=== PATIENT | male | born 1950 | race Caucasian/White ===

== ENCOUNTER 2020-11-20 12:04 | Inpatient (IN) ==
[2020-11-20 12:36] LABS: Basophils # 0.1 K/mcL (0.0-0.2); Basophils % 0.5 %; Eosinophils % 0.1 %; Hematocrit 46.1 % (37.5-50.1); Immature Granulocytes % 3.7 % (0-4); Lymphocytes # 1.5 K/mcL (0.6-4.6); Lymphocytes % 8.1 %; Mean Corpuscular HGB Conc 32.5 g/dL (31.6-35.5); Mean Corpuscular Hemoglobin 29.8 pg (28.0-33.3); Mean Corpuscular Volume 91.5 fL (83.0-100.0); Monocytes % 5.4 %; Neutrophils # 15.5 K/mcL (1.6-8.9); Platelet Count 167 K/mcL (140-400); Red Blood Count 5.04 M/mcL (4.19-5.50); Red Cell Distribution Width 16.5 % (11.5-14.5); Segmented Neutrophils % 82.2 %; White Blood Count 18.8 K/mcL (4.3-11.1)
[2020-11-20 12:52] LABS: BUN/Creatinine Ratio 23 (6-26); Blood Urea Nitrogen 41 mg/dL (8-23); Calcium 9.3 mg/dL (8.6-10.3); Carbon Dioxide 24 mEq/L (23-29); Chloride 102 mEq/L (98-107); Glucose 136 mg/dL (70-105); Osmolality,Calculated 298 (280-300); Potassium 4.1 mEq/L (3.5-5.1); Sodium 138 mEq/L (136-145); eGFR For African Americans 46 (> 60); eGFR For Non-African Americans 38 (> 60)
[2020-11-20] MEDS ORDERED: Ipratropium/Albuterol Neb 3 ML IH ONE (12:52)
[2020-11-20 12:53] LABS: Troponin I < 0.03 ng/mL (< 0.04)
[2020-11-20] MEDS ORDERED: cefTRIAXone 1,000 MG in Water for inj. (sterile) 10 ML IVP ONE (14:16)
[2020-11-20] MEDS ORDERED: Azithromycin 500 MG in D5% in Water 250 ML IVPB ONE (14:16)
[2020-11-20] MEDS ORDERED: 0.9 % Sodium Chloride 500 ML IVC ONE (14:18)
[2020-11-20] MEDS ORDERED: Naloxone 0.4 MG/ML INJ IVP PRN (16:37)
[2020-11-20] MEDS ORDERED: Furosemide 40 MG/4 ML VIAL IVP ONE (16:58)
[2020-11-20] MEDS ORDERED: Albumin 25% 25gram/100mL 25 GM/100 ML IV.SOLN IVPB ONE (17:06)
[2020-11-20] MEDS ORDERED: Perflutren Lipid Microsphere 1.3 ML in 0.9 % Sodium Chloride 8.7 ML IVP PRN (17:54)
[2020-11-20] MEDS: *HR* Heparin 5,000 UNIT/ML VIAL SQ SCH (23:17)
[2020-11-21] MEDS ORDERED: Acetaminophen 325 MG TABLET PO PRN (00:57)
[2020-11-21 01:55] LABS: Basophils # 0.1 K/mcL (0.0-0.2); Basophils % 0.4 %; Eosinophils # 0.1 K/mcL (0.0-0.6); Eosinophils % 0.5 %; Hematocrit 41.5 % (37.5-50.1); Hemoglobin 13.8 g/dL (12.9-16.9); Immature Granulocytes % 2.5 % (0-4); Lymphocytes # 3.4 K/mcL (0.6-4.6); Lymphocytes % 20.3 %; Mean Corpuscular HGB Conc 33.3 g/dL (31.6-35.5); Mean Corpuscular Hemoglobin 30.3 pg (28.0-33.3); Mean Platelet Volume 10.8 fL (9.4-12.4); Monocytes # 1.1 K/mcL (0.0-1.3); Monocytes % 6.7 %; Neutrophils # 11.6 K/mcL (1.6-8.9); Platelet Count 140 K/mcL (140-400); Red Blood Count 4.56 M/mcL (4.19-5.50); Red Cell Distribution Width 16.6 % (11.5-14.5); Segmented Neutrophils % 69.6 %; White Blood Count 16.6 K/mcL (4.3-11.1)
[2020-11-21 02:19] LABS: Albumin 3.7 g/dL (3.5-5.7); Albumin/Globulin Ratio 1.8 (1.1-2.2); Bilirubin,Total 0.8 mg/dL (0.3-1.0); Calcium 8.5 mg/dL (8.6-10.3); Globulin 2.1 g/dL (2.4-3.5); Potassium 3.9 mEq/L (3.5-5.1); Total Protein 5.8 g/dL (6.4-8.9)
[2020-11-21] MEDS: *HR* Heparin 5,000 UNIT/ML VIAL SQ SCH ×3 (05:35→21:10)
[2020-11-21] MEDS ORDERED: Nicotine 2 MG GUM BC PRN (08:59)
[2020-11-21] MEDS: Furosemide 40 MG/4 ML VIAL IVP SCH (11:05)
[2020-11-21] MEDS: Nicotine 21 MG PATCH.TD24 TD SCH (11:05)
[2020-11-21 11:35] LABS: Protein/Creatinine Ratio,Urine 0.14 mg/mg (0.00-0.20)
[2020-11-21 15:22] LABS: Bilirubin,Urine Negative (Negative); Blood,Urine Negative (Negative); Clarity,Urine Clear (Clear); Color,Urine Colorless (Yellow); Glucose,Urine (UA) Normal (Normal); Ketones,Urine Negative (Negative); Leukocyte Esterase,Urine Negative (Negative); Nitrite,Urine Negative (Negative); Protein,Urine Negative (Neg-Trace); Specific Gravity,Urine 1.009 (1.010-1.025); Urobilinogen,Urine Normal (Normal)
[2020-11-21] MEDS: carvediloL 25 MG TABLET PO SCH (16:10)
[2020-11-21] MEDS: Albuterol 2.5 MG/3 ML NEBULIZER IH PRN (16:42)
[2020-11-21] MEDS: Budesonide/Formoterol 160/4.5 1 PUFF INH IH SCH (19:55)
[2020-11-21] MEDS: Ranolazine 500 MG TAB.ER.12H PO SCH (21:10)
[2020-11-22 02:24] LABS: Basophils % 0.2 %; Eosinophils # 0.2 K/mcL (0.0-0.6); Eosinophils % 1.2 %; Hematocrit 42.4 % (37.5-50.1); Hemoglobin 13.9 g/dL (12.9-16.9); Lymphocytes # 2.9 K/mcL (0.6-4.6); Lymphocytes % 23.9 %; Mean Corpuscular HGB Conc 32.8 g/dL (31.6-35.5); Mean Corpuscular Volume 91.4 fL (83.0-100.0); Mean Platelet Volume 10.5 fL (9.4-12.4); Monocytes # 0.8 K/mcL (0.0-1.3); Neutrophils # 7.9 K/mcL (1.6-8.9); Platelet Count 119 K/mcL (140-400); Red Blood Count 4.64 M/mcL (4.19-5.50); Red Cell Distribution Width 16.1 % (11.5-14.5); Segmented Neutrophils % 65.7 %; White Blood Count 12.1 K/mcL (4.3-11.1)
[2020-11-22 02:52] LABS: Potassium 3.9 mEq/L (3.5-5.1)
[2020-11-22] MEDS: *HR* Heparin 5,000 UNIT/ML VIAL SQ SCH ×3 (05:38→21:50)
[2020-11-22] MEDS: Budesonide/Formoterol 160/4.5 1 PUFF INH IH SCH ×2 (07:46→21:59)
[2020-11-22] MEDS: Furosemide 40 MG/4 ML VIAL IVP SCH (08:11)
[2020-11-22] MEDS: Nicotine 21 MG PATCH.TD24 TD SCH (08:12)
[2020-11-22] MEDS: Ranolazine 500 MG TAB.ER.12H PO SCH ×2 (08:13→21:47)
[2020-11-22] MEDS: carvediloL 25 MG TABLET PO SCH ×2 (08:13→17:37)
[2020-11-22] MEDS: Isosorbide MONOnitrate (24 HR) 60 MG TAB.ER.24H PO SCH (08:13)
[2020-11-22] MEDS: Aspirin Enteric Coated 81 MG Tablet PO SCH (08:13)
[2020-11-22] MEDS: Albuterol 2.5 MG/3 ML NEBULIZER IH PRN (09:46)
[2020-11-22] MEDS: Tiotropium 10 INH DOSE IH SCH (09:46)
[2020-11-22] MEDS ORDERED: Albumin 25% 25gram/100mL 25 GM/100 ML IV.SOLN IVPB ONE (11:36)
[2020-11-23 03:02] LABS: Eosinophils % 1.9 %; Immature Granulocytes % 1.3 % (0-4)
[2020-11-23 03:05] LABS: Basophils % 0.3 %; Eosinophils # 0.2 K/mcL (0.0-0.6); Hematocrit 38.2 % (37.5-50.1); Hemoglobin 12.8 g/dL (12.9-16.9); Immature Platelets 4.6 % (1.1-6.1); Lymphocytes # 2.2 K/mcL (0.6-4.6); Lymphocytes % 20.7 %; Mean Corpuscular HGB Conc 33.5 g/dL (31.6-35.5); Mean Corpuscular Hemoglobin 30.3 pg (28.0-33.3); Mean Corpuscular Volume 90.3 fL (83.0-100.0); Mean Platelet Volume 10.3 fL (9.4-12.4); Monocytes # 0.8 K/mcL (0.0-1.3); Monocytes % 7.5 %; Neutrophils # 7.3 K/mcL (1.6-8.9); Platelet Count 100 K/mcL (140-400); Red Blood Count 4.23 M/mcL (4.19-5.50); Red Cell Distribution Width 16.1 % (11.5-14.5); Segmented Neutrophils % 68.3 %; White Blood Count 10.7 K/mcL (4.3-11.1)
[2020-11-23 03:26] LABS: Calcium 8.5 mg/dL (8.6-10.3); Potassium 3.7 mEq/L (3.5-5.1)
[2020-11-23] MEDS: *HR* Heparin 5,000 UNIT/ML VIAL SQ SCH (05:25)
[2020-11-23] MEDS: Tiotropium 10 INH DOSE IH SCH (07:23)
[2020-11-23] MEDS: Budesonide/Formoterol 160/4.5 1 PUFF INH IH SCH (07:24)
[2020-11-23] MEDS: Aspirin Enteric Coated 81 MG Tablet PO SCH (09:18)
[2020-11-23] MEDS: Ranolazine 500 MG TAB.ER.12H PO SCH (09:18)
[2020-11-23] MEDS: Furosemide 40 MG/4 ML VIAL IVP SCH (09:18)
[2020-11-23] MEDS: Isosorbide MONOnitrate (24 HR) 60 MG TAB.ER.24H PO SCH (09:18)
[2020-11-23] MEDS: carvediloL 25 MG TABLET PO SCH (09:18)
[2020-11-23] MEDS: Nicotine 21 MG PATCH.TD24 TD SCH (09:19)
[2020-11-23 10:24] VITALS: BP 110/74; PULSE 89; TEMP 98; O2SAT 93
== END 2020-11-23 13:01 | disposition home or self-care (01) | DRG 291 ==
LOC: EMEROOARM 12:04 → 3ANU 12:04
PROVIDERS: ADMIT Internal Medicine; ATTEND Internal Medicine

== ENCOUNTER 2021-04-15 12:18 | Inpatient (IN) ==
[2021-04-15] MEDS ORDERED: Ipratropium/Albuterol Neb 3 ML IH ONE (12:45)
[2021-04-15] MEDS ORDERED: methylPREDNISolone 125 MG/2 ML VIAL IVP ONE (12:45)
[2021-04-15] MEDS ORDERED: levoFLOXacin 750 MG/150 ML 750 MG/150 ML BAG IVPB ONE (12:45)
[2021-04-15] MEDS ORDERED: 0.9 % Sodium Chloride 1,000 ML IVC ONE (12:50)
[2021-04-15 13:13] LABS: Basophils % 0.3 %; Eosinophils # 0.2 K/mcL (0.0-0.6); Eosinophils % 2.4 %; Hematocrit 43.1 % (37.5-50.1); Immature Granulocytes % 0.9 % (0-4); Lymphocytes # 0.9 K/mcL (0.6-4.6); Lymphocytes % 9.3 %; Mean Corpuscular HGB Conc 32.5 g/dL (31.6-35.5); Mean Corpuscular Hemoglobin 29.5 pg (28.0-33.3); Mean Corpuscular Volume 90.9 fL (83.0-100.0); Mean Platelet Volume 10.6 fL (9.4-12.4); Monocytes # 0.9 K/mcL (0.0-1.3); Monocytes % 8.6 %; Neutrophils # 7.9 K/mcL (1.6-8.9); Platelet Count 169 K/mcL (140-400); Red Blood Count 4.74 M/mcL (4.19-5.50); Red Cell Distribution Width 16.4 % (11.5-14.5); Segmented Neutrophils % 78.5 %; White Blood Count 10.1 K/mcL (4.3-11.1)
[2021-04-15 13:26] LABS: BUN/Creatinine Ratio 20 (6-26); Blood Urea Nitrogen 42 mg/dL (8-23); Calcium 8.8 mg/dL (8.6-10.3); Carbon Dioxide 27 mEq/L (23-29); Chloride 99 mEq/L (98-107); Glucose 138 mg/dL (70-105); Osmolality,Calculated 295 (280-300); Potassium 4.1 mEq/L (3.5-5.1); Sodium 136 mEq/L (136-145); Troponin I < 0.03 ng/mL (< 0.04); eGFR For African Americans 37 (> 60); eGFR For Non-African Americans 31 (> 60)
[2021-04-15 13:57] LABS: Influenza A PCR Negative (Negative); Influenza B PCR Negative (Negative); Resp. Syncytial Virus PCR Negative (Negative); SARS-CoV-2 by PCR (In House) Negative (Negative)
[2021-04-15] MEDS ORDERED: Melatonin 3 MG TABLET PO PRN (15:06)
[2021-04-15] MEDS ORDERED: Mag Hydrox/Al Hydrox/Simeth 30 ML UDC PO PRN (15:06)
[2021-04-15] MEDS ORDERED: Naloxone 0.4 MG/ML INJ IVP PRN (15:06)
[2021-04-15] MEDS ORDERED: Ondansetron ODT 4 MG TAB.RAPDIS SL PRN (15:06)
[2021-04-15] MEDS ORDERED: Albuterol 2.5 MG/3 ML NEBULIZER IH PRN (15:07)
[2021-04-15] MEDS: Ipratropium/Albuterol Neb 3 ML IH SCH ×3 (16:13→23:30)
[2021-04-15 17:07] LABS: Bilirubin,Urine Negative (Negative); Blood,Urine Negative (Negative); Clarity,Urine Clear (Clear); Color,Urine Light-Yellow (Yellow); Glucose,Urine (UA) 150 mg/dL (Normal); Ketones,Urine Negative (Negative); Leukocyte Esterase,Urine Negative (Negative); Nitrite,Urine Negative (Negative); Protein,Urine Negative (Neg-Trace); RBC,Urine 0-3 per hpf (0-3); Specific Gravity,Urine 1.012 (1.010-1.025); Urobilinogen,Urine Normal (Normal)
[2021-04-15 17:34] LABS: Albumin 3.9 g/dL (3.5-5.7); Albumin/Globulin Ratio 1.6 (1.1-2.2); Bilirubin,Direct 0.2 mg/dL (0.0-0.2); Bilirubin,Indirect 0.5 mg/dL (0.0-1.0); Bilirubin,Total 0.7 mg/dL (0.3-1.0); Globulin 2.4 g/dL (2.4-3.5); Total Protein 6.3 g/dL (6.4-8.9)
[2021-04-15 18:10] LABS: Adenovirus Not Detected (Not Detect); Bordetella Pertussis Not Detected (Not Detect); Chlamydophila pneumoniae Not Detected (Not Detect); Coronavirus 229E Not Detected (Not Detect); Coronavirus HKU1 Not Detected (Not Detect); Coronavirus NL63 Not Detected (Not Detect); Coronavirus OC43 Not Detected (Not Detect); Human Metapneumovirus DETECTED (Not Detect); Human Rhinovirus/Enterovirus Not Detected (Not Detect); Influenza A Subtype 2009 H1 Not Detected (Not Detect); Influenza B Not Detected (Not Detect); Mycoplasma pneumoniae Not Detected (Not Detect); Parainfluenza Virus 1 Not Detected (Not Detect); Parainfluenza Virus 2 Not Detected (Not Detect); Parainfluenza Virus 3 Not Detected (Not Detect); Parainfluenza Virus 4 Not Detected (Not Detect); Respiratory Syncytial Virus Not Detected (Not Detect); SARS-CoV-2 Not Detected (Not Detect)
[2021-04-16] MEDS: Ipratropium/Albuterol Neb 3 ML IH SCH ×6 (03:36→23:10)
[2021-04-16 06:01] LABS: Hematocrit 38.5 % (37.5-50.1); Hemoglobin 12.9 g/dL (12.9-16.9); Mean Corpuscular HGB Conc 33.5 g/dL (31.6-35.5); Mean Corpuscular Hemoglobin 30.4 pg (28.0-33.3); Mean Corpuscular Volume 90.6 fL (83.0-100.0); Mean Platelet Volume 10.4 fL (9.4-12.4); Platelet Count 140 K/mcL (140-400); Red Blood Count 4.25 M/mcL (4.19-5.50); Red Cell Distribution Width 16.5 % (11.5-14.5)
[2021-04-16 06:22] LABS: Calcium 8.5 mg/dL (8.6-10.3); Potassium 4.1 mEq/L (3.5-5.1)
[2021-04-16] MEDS: predniSONE 20 MG TABLET PO SCH (08:13)
[2021-04-16] MEDS: Azithromycin 250 MG TABLET PO SCH (08:14)
[2021-04-16] MEDS: carvediloL 25 MG TABLET PO SCH ×2 (12:28→20:54)
[2021-04-16] MEDS: Aspirin Enteric Coated 81 MG Tablet PO SCH (12:32)
[2021-04-16] MEDS: *HR* Heparin 5,000 UNIT/ML VIAL SQ SCH (17:41)
[2021-04-16] MEDS: Budesonide/Formoterol 160/4.5 1 PUFF INH IH SCH (19:53)
[2021-04-16] MEDS: Ranolazine 500 MG TAB.ER.12H PO SCH (20:56)
[2021-04-17 02:34] LABS: Hematocrit 37.8 % (37.5-50.1); Hemoglobin 12.2 g/dL (12.9-16.9); Mean Corpuscular HGB Conc 32.3 g/dL (31.6-35.5); Mean Corpuscular Hemoglobin 29.7 pg (28.0-33.3); Mean Platelet Volume 10.1 fL (9.4-12.4); Platelet Count 136 K/mcL (140-400); Red Blood Count 4.11 M/mcL (4.19-5.50); Red Cell Distribution Width 16.6 % (11.5-14.5); White Blood Count 12.5 K/mcL (4.3-11.1)
[2021-04-17 03:47] LABS: Calcium 8.5 mg/dL (8.6-10.3)
[2021-04-17] MEDS: Ipratropium/Albuterol Neb 3 ML IH SCH ×4 (03:56→17:00)
[2021-04-17] MEDS: *HR* Heparin 5,000 UNIT/ML VIAL SQ SCH (05:13)
[2021-04-17] MEDS ORDERED: Magnesium Oxide 400 MG TABLET PO SCH (09:00)
[2021-04-17] MEDS ORDERED: Valsartan 80 MG TABLET PO SCH (09:00)
[2021-04-17] MEDS ORDERED: Spironolactone 25 MG TABLET PO SCH (09:00)
[2021-04-17] MEDS ORDERED: Cyanocobalamin (B-12) 1,000 MCG TABLET PO SCH (09:00)
[2021-04-17] MEDS: carvediloL 25 MG TABLET PO SCH (09:29)
[2021-04-17] MEDS: Aspirin Enteric Coated 81 MG Tablet PO SCH (09:29)
[2021-04-17] MEDS: predniSONE 20 MG TABLET PO SCH (09:29)
[2021-04-17] MEDS: Ranolazine 500 MG TAB.ER.12H PO SCH (09:29)
[2021-04-17] MEDS: Azithromycin 250 MG TABLET PO SCH (09:29)
[2021-04-17 10:24] VITALS: PULSE 106; TEMP 97.4
[2021-04-17 10:33] VITALS: BP 97/71
[2021-04-17] MEDS: Budesonide/Formoterol 160/4.5 1 PUFF INH IH SCH (11:33)
[2021-04-17 12:18] VITALS: O2SAT 93
== END 2021-04-17 17:35 | disposition home health service (06) | DRG 193 ==
LOC: 3BNU 12:18 → EMEROOARM 12:18 → 3BNU 15:45
PROVIDERS: ADMIT Hospitalist; ATTEND Hospitalist